=== PATIENT | female | born 1965 | race Native Hawaiian/Other Pacific Islander ===

== ENCOUNTER 2018-06-27 11:51 | Emergency (ER) | payer SELFPAY ==
[2018-06-27 12:11] VITALS: BP 191/76
== END 2018-06-27 16:57 | disposition left against medical advice (07) ==
LOC: ED 11:51
DX: S30.95XA Unspecified superficial injury of vagina and vulva, initial encounter (principal); Z53.21 Procedure and treatment not carried out due to patient leaving prior to being seen by health care provider